=== PATIENT | female | born 1955 | race Caucasian/White ===

== ENCOUNTER 2018-06-17 07:02 | Outpatient (CLI) | payer BC ==
--- NOTE | 2018-06-17 08:44 | ULT ---
HEPATIC ULTRASOUND WITH HEPATIC DOPPLER EVALUATION: Date: 06/17/18 HISTORY: Abnormal liver function tests, hypercholesterolemia. FINDINGS: The liver, gallbladder, visualized portions of the pancreas, visualized portions of the IVC, and righ t kidney demonstrate a normal sonographic appearance. The right kidney measures 10.2 cm in length. Th e spleen also demonstrates a normal appearance. There are areas of shadowing from adjacent ribs, but no focal splenic lesion is seen and the spleen is not enlarged. The common duct measures 0.7 cm in di ameter, which is within normal limits for the patient's age. Hepatic Doppler evaluation with spectral analysis and color flow evaluation is performed. Arterial wa veforms are present within the hepatic and splenic arteries. Normal directional flow is seen within t he portal, hepatic, and splenic veins. IMPRESSION: 1. Normal appearance of the liver. No gallbladder calculi seen. 2. No evidence of splenomegaly. 3. Normal directional flow is seen within the splenic, hepatic, and portal veins. POS: [facility]
== END 2018-06-17 07:03 | disposition home or self-care (01) ==
LOC: SCSULT 07:02
PROVIDERS: ATTEND Internal Medicine Gastroenterology
DX: E78.00 Pure hypercholesterolemia, unspecified (principal); R94.5 Abnormal results of liver function studies
CPT/HCPCS: 76705

== ENCOUNTER 2019-07-20 07:41 | Outpatient (CLI) | payer BC ==
--- NOTE | 2019-07-20 11:31 | MRI ---
MRI RIGHT HIP PERFORMED WITHOUT CONTRAST ENHANCEMENT: Date: 07/20/2019 HISTORY: Right hip pain, more chronic in nature. FINDINGS: There are some mild arthritic changes of the lower lumbar spine. SI joints are symmetric. No signs of any pelvic insufficiency type fractures. Visualized intrapelvic contents appear unremarkable. Some m ild tendinosis of the hamstring tendon origins are present. There are some mild arthritic changes of the left hip. Small field of view images of the right hip are performed. These show fairly pronounced arthritic connie nges of the hip with joint space narrowing. There is marrow edema change involving the femoral head w ith subchondral bony changes that would be compatible with an area of insufficiency type fracture. Se marquis articular cartilage loss is seen. There is subchondral cystic change seen. There is also some reid bchondral cyst involving the acetabulum. The labrum is deformed with what appear to be paralabral cys ts. There is a moderate joint effusion present. There is tendinosis of the gluteus medius tendon insertion and minimal changes of the gluteus minimus tendon. There is some moderate gluteus minimus muscle atrophy. IMPRESSION: 1. Moderately large right joint effusion associated with severe arthritic changes of the right hip, marked joint space narrowing superiorly. There are edema changes involving the femoral head with area s that appear to represent some areas of developing osteonecrosis. 2. Mild tendinosis of the gluteus medius tendon and moderate atrophy of the gluteus minimus muscle. POS: [facility]
== END 2019-07-20 07:42 | disposition home or self-care (01) ==
LOC: SCSMRI 07:41 → TBSIIMAG 07:42
PROVIDERS: ATTEND Physical Medicine & Rehabilitation
DX: M25.551 Pain in right hip (principal); M16.11 Unilateral primary osteoarthritis, right hip; M25.451 Effusion, right hip; M25.851 Other specified joint disorders, right hip; M67.853 Other specified disorders of tendon, right hip

== ENCOUNTER 2020-04-01 11:04 | Outpatient (CLI) | payer BC ==
--- NOTE | 2020-04-01 12:06 | ULT ---
Sonogram abdomen complete HISTORY: Abnormal liver function tests. Hypercholesterolemia. FINDINGS: Gallbladder has a normal appearance without stone. Common duct is 0.5 cm. Liver unremarkable without focal mass or intrahepatic biliary dilatation. No free fluid. The left renal pelvis is prominent up to 2.2 cm. Calyces are not dilated. Likely an extrarenal pelvis . The spleen, right kidney, and visualized portions of the abdominal aorta, IVC, and pancreas are withi n normal limits. IMPRESSION : No biliary abnormalities or other significant abnormalities are demonstrated.
== END 2020-04-01 11:05 | disposition home or self-care (01) ==
LOC: SCSULT 11:04
PROVIDERS: ATTEND Internal Medicine Gastroenterology
DX: E78.00 Pure hypercholesterolemia, unspecified (principal); R94.5 Abnormal results of liver function studies; Z96.649 Presence of unspecified artificial hip joint
CPT/HCPCS: 93975

== ENCOUNTER 2020-05-10 07:37 | Day surgery (SDC) | payer BC ==
[2020-05-09 10:06] VITALS: BMI 22.4
[2020-05-10 07:53] LABS: #Basophils 0.1 thou/uL (0.0-0.2); #Eosinphils 0.1 thou/uL (0.0-0.7); #Lymphocytes 2.4 thou/uL (1.20-3.40); #Monocytes 0.3 thou/uL (0.11-0.59); #Neutrophils 1.9 thou/uL (1.40-6.50); %Basophils 2.3 % (0.0-1.0); %Eosinophils 2.3 % (0.0-10.0); %Lymphocytes 49.6 % (21.0-51.0); %Monocytes 6.8 % (0.0-10.0); %Neutrophils 39.1 % (42.0-75.0); Hemoglobin 12.8 g/dL (12.0-16.0); Mean Corpuscular Hemoglobin 28.5 pg (27.0-31.0); Mean Corpuscular Volume 86.3 fL (78.0-98.0); Mean Platelet Volume 7.8 fL (7.4-10.4); Platelet Count 237 thou/uL (130-400); RBC Distribution Width 13.1 % (11.5-14.5); Red Blood Cell (RBC) Count 4.47 mill/uL (4.20-5.40); White Blood Cell (WBC) Count 4.9 thou/uL (4.8-10.8)
[2020-05-10] MEDS ORDERED: Lidocaine 1% PF 5 ML VIAL ONE (07:54)
[2020-05-10] MEDS ORDERED: Sodium Bicarbonate 2.5 MEQ/5 ML VIAL ONE ×2 (07:54→07:55)
[2020-05-10] MEDS ORDERED: Midazolam HCl 2 mg/2 ml Vial ONE (07:54)
[2020-05-10] MEDS ORDERED: Fentanyl 100 MCG/2 ML VIAL ONE (07:54)
[2020-05-10 08:03] LABS: INR-International Normal Ratio 0.8; PTT 29.7 sec (22.9-36.1); Prothrombin Time 11.6 sec (12.0-14.7)
--- NOTE | 2020-05-10 13:09 | ULT ---
PROCEDURE: Ultrasound-guided random left hepatic lobe biopsy PROVIDED CLINICAL HISTORY: Abnormal liver function tests TECHNIQUE: The procedure including the risks and complications were explained to the patient, and informed conse nt was obtained. Patient was placed on the sonography table in the prone position. Conscious sedation was performed with the intravenous administration of 0.5 mg Versed and 25 mcg fentanyl. Chrissy ent was monitored for approximately 30 minutes during the procedure. The skin and subcutaneous tissues were infiltrated with buffered 1% lidocaine for local anesthesia at the intended puncture site. A small skin incision was made. A 17-gauge guide needle was advanced into the left hepatic lobe utilizing concurrent real-time ultrasound guidance. Utilizing coaxial tech nique, [id number] core needle biopsy specimen was obtained. The needle was removed, and hemostasis was achieved with direct pressure for approximately 10 minutes . A dry sterile dressing was placed. Patient tolerated the procedure well and without immediate complication. Patient was transported to radiology nurses holding area for further monitoring prior t o discharge IMPRESSION: Technically successful random left hepatic lobe biopsy. Pathology is currently pending.
[2020-05-10 15:07] VITALS: BP 105/65; TEMP 98
== END 2020-05-10 12:23 | disposition home or self-care (01) ==
LOC: ULT 07:37
PROVIDERS: ATTEND Internal Medicine Gastroenterology
PROC: 0FB23ZX Excision of Left Lobe Liver, Percutaneous Approach, Diagnostic (ICD-10-PCS; principal; 2020-05-10)
DX: R94.5 Abnormal results of liver function studies (principal); E78.00 Pure hypercholesterolemia, unspecified; F32.9 Major depressive disorder, single episode, unspecified; Z87.891 Personal history of nicotine dependence; Z79.83 Long term (current) use of bisphosphonates; Z79.899 Other long term (current) drug therapy; Z88.5 Allergy status to narcotic agent; Z91.018 Allergy to other foods; Z96.641 Presence of right artificial hip joint
CPT/HCPCS: 36415; 47000; 76942; 85025; 85610; 85730; 88307; 88313; J2250; J3010